=== PATIENT | female | born 1980 | race Caucasian/White ===

== ENCOUNTER 2021-06-07 20:53 | Emergency (ER) | payer OTHER ==
[~2021-06-07] VITALS: Ht 165.1 cm; Wt 63.8 kg
--- NOTE | 2021-06-07 21:18 | PHYS DOC ---
Past History Past Surgical History: Tonsillectomy, Other Additional Past Surgical Histo: right knee ACL Alcohol Use: Occasionally General Adult EDM: Chief Complaint: CHEST PAIN HPI: HPI: 41-year-old female presents with chest pain. The patient had an episode of palpitation earlier today around 2:00 while she was watching her son's cross- country meet. She was slightly dizzy at that time but it went away. She has intermittent palpitations that have been deemed not dangerous by her physician. This evening she had a left-sided chest heaviness with a feeling of warmth over her body and that she might pass out. The dizziness returned at that time. She was making dinner when this episode started. It did not improve with rest but the dizziness faded. Currently she has chest pressure that is a 3 or 4 out of 10 on the left side without radiation. She does not have any dizziness. The patient has no significant risk factors. No family history of heart disease under the age of 50. She has no personal cardiopulmonary diagnoses. She denies fever or chills. Review of Systems: Review of Systems: Constitutional: Denies fever or chills Eyes: Denies change in visual acuity HENT: Denies nasal congestion or sore throat Respiratory: Denies cough or shortness of breath Cardiovascular: Chest pain GI: Denies abdominal pain, nausea, vomiting, bloody stools or diarrhea : Denies dysuria Musculoskeletal: Denies back pain or joint pain Integument: Denies rash Neurologic: Denies headache, focal weakness or sensory changes Endocrine: Denies polyuria or polydipsia Lymphatic: Denies swollen glands Psychiatric: Denies depression or anxiety Allergies: Allergies: Allergies Coded Allergies Type Severity Reaction Last Updated Verified No Known Drug Allergies 06/07/21 No Physical Exam: PE: Constitutional: Well developed, well nourished, no acute distress, non-toxic appearance. [] HENT: Normocephalic, atraumatic, bilateral external ears normal, oropharynx moist, no oral exudates, nose normal. [] Eyes: PERRLA, EOMI, conjunctiva normal, no discharge. [] Neck: Normal range of motion, no tenderness, supple, no stridor. [] Cardiovascular: Heart rate 66, regular rhythm, no murmur [] Lungs & Thorax: Bilateral breath sounds clear to auscultation [] Abdomen: Bowel sounds normal, soft, no tenderness, no masses, no pulsatile masses. [] Skin: Warm, dry, no erythema, no rash. [] Back: No tenderness, no CVA tenderness. [] Extremities: No tenderness, no cyanosis, no clubbing, ROM intact, no edema. [] Neurologic: Alert and oriented X 3, normal motor function, normal sensory function, no focal deficits noted. [] Psychologic: Affect normal, judgement normal, mood normal. [] Current Patient Data: Vital Signs: Vital Signs Date Time Temp Pulse Resp B/P (MAP) Pulse Ox O2 Delivery O2 Flow Rate FiO2 06/07/21 20:58 98.5 60 16 122/65 (84) 100 Room Air EKG: EKG: Sinus rhythm, rate 66, normal axis, no ST elevation or depression. [] Radiology/Procedures: Radiology/Procedures: [] Impressions: EXAM: CHEST 1 VIEW History: Chest pain COMPARISON: None available. TECHNIQUE: Single portable radiograph of the chest FINDINGS: The cardiac silhouette is unremarkable. The lungs are clear bilaterally. The costophrenic sulci are clear and well demarcated. IMPRESSION: No radiographic evidence of an acute cardiopulmonary process. Electronically signed by: Rayray Walker MD (06/07/2021 10:39 PM) [id number] DICTATED AND SIGNED BY: RAYRAY WALKER MD DATE: 06/07/212237 CC: ANTELMO CREWS DO ~MTH0 0 Heart Score: C/O Chest Pain: Yes HEART Score for Chest Pain: HEART Score for Chest Pain Response (Comments) Value History Slighlty/Non-Suspicious 0 ECG Normal 0 Age < 45 0 Risk Factors No Risk Factors 0 Troponin < Normal Limit 0 Total 0 Risk Factors: Risk Factors: DM, Current or recent (<one month) smoker, HTN, HLP, family history of CAD, obesity. Risk Scores: Score 0 - 3: 2.5% MACE over next 6 weeks - Discharge Home Score 4 - 6: 20.3% MACE over next 6 weeks - Admit for Clinical Observation Score 7 - 10: 72.7% MACE over next 6 weeks - Early Invasive Strategies Course & Med Decision Making: Course & Med Decision Making Pertinent Labs and Imaging studies reviewed. (See chart for details) The patient's EKG is unremarkable. Her chest x-ray is negative for acute findings. Her labs are unremarkable. Her troponin is not 0, but is within normal limits. I have an abundance of caution I will draw a second troponin before discharging the patient. I explained this to her and she is in agreement with the plan. If she continues to have symptoms she should follow-up and have a further work-up by her primary care physician or student records coordinator. She states verbal understanding. She is stable for discharge at this time. [] Kathyon Disclaimer: Robbie Disclaimer: This electronic medical record was generated, in whole or in part, using a voice recognition dictation system. Departure Departure: Impression: Primary Impression: Chest pain Qualified Codes: R07.9 - Chest pain, unspecified Disposition: HOME / SELF CARE / HOMELESS Condition: STABLE Patient Instructions: Chest Pain (Nonspecific), [id number]-[id number] ANTELMO CREWS DO Jun 07, 2021 21:18
[2021-06-07 21:26] LABS: BASO # 0.1 x10^3/uL (0.0-0.2); BASO % 1 % (0-3); EOS # 0.1 x10^3/uL (0.0-0.7); EOS % 1 % (0-3); HEMATOCRIT 36.4 % (36.0-47.0); HEMOGLOBIN 12.4 g/dL (12.0-15.5); LYMPH # 1.4 x10^3/uL (1.0-4.8); LYMPH % 16 % (24-48); MEAN CORPUSCULAR HEMOGLOBIN 32 pg (25-35); MEAN CORPUSCULAR HGB CONC 34 g/dL (31-37); MEAN CORPUSCULAR VOLUME 93 fL (79-100); MONO # 0.7 x10^3/uL (0.0-1.1); MONO % 8 % (0-9); NEUT # 6.4 x10^3uL (1.8-7.7); NEUT % 74 % (31-73); PLATELET COUNT 247 x10^3/uL (140-400); RED BLOOD COUNT 3.91 x10^6/uL (3.50-5.40); RED CELL DISTRIBUTION WIDTH 13.2 % (11.5-14.5); WHITE BLOOD COUNT 8.6 x10^3/uL (4.0-11.0)
[2021-06-07 21:34] LABS: CREATININE 0.8 mg/dL (0.6-1.0); GFR 79.4; POTASSIUM 3.7 mmol/L (3.5-5.1)
[2021-06-07 21:39] LABS: ALBUMIN 3.9 g/dL (3.4-5.0); ALBUMIN/GLOBULIN RATIO 1.3 (1.0-1.7); TOTAL BILIRUBIN 0.4 mg/dL (0.2-1.0)
[2021-06-07 21:45] LABS: BILIRUBIN,URINE NEG (NEG); CLARITY,URINE CLEAR; COLOR,URINE YELLOW; GLUCOSE,URINE NEG (NEG); NITRITE,URINE NEG (NEG); RBC,URINE 0 /HPF (0-2); UROBILINOGEN,URINE 0.2 mg/dL (0.2 mg/dL)
[2021-06-07 21:46] LABS: BACTERIA,URINE 0 /HPF (0-FEW); HYALINE CASTS, URINE OCC /HPF; SQUAMOUS EPITHELIAL CELL,UR FEW /LPF; WBC,URINE 0 /HPF (0-4)
--- NOTE | 2021-06-07 22:42 | RAD ---
EXAM: CHEST 1 VIEW History: Chest pain COMPARISON: None available. TECHNIQUE: Single portable radiograph of the chest FINDINGS: The cardiac silhouette is unremarkable. The lungs are clear bilaterally. The costophrenic sulci are clear and well demarcated. IMPRESSION: No radiographic evidence of an acute cardiopulmonary process. Electronically signed by: Rayray Walker MD (06/07/2021 10:39 PM) [id number]
[2021-06-07 23:10] VITALS: BP 117/70
--- NOTE | 2021-06-08 07:18 | EKG ---
[address] [address] Test Date: 2021-06-07 Test Time: 21:04:22 Pat Name: RIKI STRONG Department: Room: Gender: F [employer]: : 1980 Requested By: ANTELMO CREWS Order Number: [id number] Reading MD: Measurements Intervals [place] Rate: 66 P: 61 VT: 156 QRS: 79 QRSD: 76 T: 34 QT: 398 QTc: 419 Interpretive Statements SINUS RHYTHM NORMAL ECG RI6.02 No previous ECG available for comparison
== END 2021-06-07 23:54 | disposition home or self-care (01) ==
LOC: ER 20:53
DX: R07.89 Other chest pain (principal); R00.2 Palpitations; R42 Dizziness and giddiness
CPT/HCPCS: 36415; 71045; 80053; 81001; 84484; 85025; 93005; 99285

== ENCOUNTER → 2021-07-26 | Outpatient (CLI) | payer OTHER ==
--- NOTE | 2021-07-26 12:56 | RAD ---
MR#: [id number] Date of Study: 07/26/2021 Ordering Physician: JACOB HIGGINS Referring Physician: CARLOS WORTHY Tech: ANA MARIA Dalton APPROVED REPORT Test Type: Exercise Stress Nurse/Tech: ANA MARIA Dalton Test Indications: elevated Troponin Cardiac History: none Medications: see EHR Medical History: see EHR Resting ECG: SR Resting Heart Rate: 71 bpm Resting Blood Pressure: 110/59mmHg Pretest Chest Pain: None Nurse/Tech Notes Consent: The procedure was explained to the patient in lay terms. Informed consent was witnessed. Seymour eout was entered into [employer]. History and Stress Test performed by ANA MARIA Dalton POST EXERCISE Reason for Termination: Reached target heart rate Target HR: 153 Max HR: 153 bpm Blood Pressure response to exercise: Normal blood pressure response during stress. Heart Rate response to exercise: normal Chest Pain: Yes. INTERPRETATION Stress EKG Conclusion: Baseline EKG showed sinus rhythm. No ischemic changes at peak stress. No arr hythmias. Imaging Protocol IMAGE PROTOCOL: Rest Tc-99m/stress Tc-99m 1 day Rest: Stress: Viability: Radiopharm.Tc99m VokrynpbcFb97z Sestamibi Xgfl49wWi 31mCi Duration 15min. 10min. Img Date 07/26/2021 07/26/2021 Inj-Img Vyuh81cei. 60min. Post-Injection Exercise: 1 minute Rest Admin Site:IV - Right AntecubitalAdministrator: ANA MARIA Dalton Stress Admin Site: IV - Right AntecubitalAdministrator: ANA MARIA Dalton STRESS DATA End Diast. Vol.108.0mlAv. Heart Rate59.0bpm End Syst. Vol.34.0mlCO Index BSA0.0L/min Myocardial Rozq860.0gEject. Kpecitoi43.0% Stress Rates Pk. Fill Rate3.29EDV/secLVtime Pk. Fill 212.07msec Pk. Empty Rate4.10ESV/secLVtime Pk. Mdtvw990.85msec 09/26 Pk. Fill1.60EDV/sec Stress Scores Regional WT0.00Summed WT0.00 Regional WM0.00Summed WM0.00 Study quality was good. Left Ventricular size was Normal at Rest and Stress. Lung uptake was . Left Ventricular ejection fraction is 67%. The rest and stress images show normal perfusion, normal contraction and thickening. LV Perf. Quant 17 Seg. SSS0.00 17 Seg. SRS1.00 17 Seg. SDS0.00 Stress Defect Extent (% LAD)0.00Rest Defect Extent (% LAD)0.00Rev. Defect Extent (% LAD)0.00 Stress Defect Extent (% LCX) 0.00Rest Defect Extent (% LCX)0.00Rev. Defect Extent (% LCX)0.00 Stress Defect Extent (% RCA)0.00Rest Defect Extent (% RCA)0.00Rev. Defect Extent (% RCA)0.00 Stress Defect Extent (% JEFFERSON)0.00Rest Defect Extent (% JEFFERSON)0.00Rev. Defect Extent (% JEFFERSON)0.00 Conclusion 1. Treadmill exercise cardioisotope stress test did not show any evidence of ischemia or infarct. 2. Normal left ventricular systolic function with ejection fraction calculated at 67%. 3. Low risk for cardiac events. Signed by : Jacob Higgins Electronically Approved : 07/26/2021 12:56:11
--- NOTE | 2021-07-26 13:10 | CARD ---
MR#: [id number] Date of Study: 07/26/2021 Ordering Physician: JACOB HIGGINS, Referring Physician: JACOB HIGGINS, Tech: Kayla Reeder [facility] APPROVED REPORT EXAM: Two-dimensional and M-mode echocardiogram with Doppler and color Doppler. Other Information Quality : GoodHR: 53bpm INDICATION Chest Pain Elevated Troponin 2D DIMENSIONS RVDd3.5 (2.9-3.5cm)Left Atrium(2D)2.9 (1.6-4.0cm) IVSd0.7 (0.7-1.1cm)Aortic Root(2D)2.8 (2.0-3.7cm) LVDd5.1 (3.9-5.9cm)LVOT Diameter2.0 (1.8-2.4cm) PWd0.7 (0.7-1.1cm)LVDs3.3 (2.5-4.0cm) FS (%) 35.4 %SV79.7 ml LVEF(%)64.5 (>50%) Aortic Valve AoV Peak Uriel.164.1cm/sAoV VTI39.8cm AO Peak GR.10.8mmHgLVOT Peak Uriel.138.2cm/s LVOT VTI 31.89cmAO Mean GR.6mmHg SIGIFERDO (VMAX)2.18ie0OLC (VTI)2.58cm2 Mitral Valve MV E Lgfzbwsv808.6cm/sMV E Peak Gr.4mmHg MV DECEL [id number] A Kgryhjsi35.6cm/s MV E Mean Gr.1mmHgE/A Ratio2.3 Pulmonary Valve PV Peak Tbtmcizt56.0cm/sPV Peak Grad.4mmHg Tricuspid Valve TR P. Dvjwicos250pu/sRAP XRFOVWES2lgCa TR Peak Gr.21laFqALTI00zcTs Pulmonary Vein S1 Taqltslu91.5cm/sD2 Dqgbbkkc20.4cm/s LEFT VENTRICLE The left ventricle is normal size. There is normal left ventricular wall thickness. The left ventricu lar systolic function is normal. The Ejection Fraction is 55%. There is normal LV segmental wall mariana on. The left ventricular diastolic function and filling is normal for age. RIGHT VENTRICLE The right ventricle is normal size. There is normal right ventricular wall thickness. The right ventr icular systolic function is normal. ATRIA The left atrium size is normal. The right atrium size is normal. The interatrial septum is intact wit h no evidence for an atrial septal defect or patent foramen ovale as noted on 2-D or Doppler imaging. AORTIC VALVE The aortic valve is normal in structure and function. Doppler and Color Flow revealed no significant aortic regurgitation. There is no significant aortic valvular stenosis. Calculated aortic valve area is 2.7 cm2 with maximum pressure gradient of 11 mmHg and mean pressure gradient of 6 mmHg. MITRAL VALVE The mitral valve is normal in structure and function. There is no evidence of mitral valve prolapse. There is no mitral valve stenosis. Doppler and Color Flow revealed no mitral valve regurgitation note d. TRICUSPID VALVE The tricuspid valve is normal in structure and function. Doppler and Color Flow revealed trace tricus pid regurgitation with an estimated PAP of 26 mmHg. There is no tricuspid valve stenosis. PULMONIC VALVE The pulmonary valve is normal in structure and function. Doppler and Color Flow revealed trace pulmon ic valvular regurgitation. GREAT VESSELS The aortic root is normal in size. The ascending aorta is normal in size. The IVC is normal in size a nd collapses >50% with inspiration. PERICARDIAL EFFUSION There is no evidence of significant pericardial effusion. Critical Notification Critical Value: No <Conclusion> The left ventricular systolic function is normal. The Ejection Fraction is 55%. There is normal LV segmental wall motion. Trace tricuspid regurgitation with an estimated PAP of 26 mmHg. There is no evidence of significant pericardial effusion. Signed by : Jacob Higgins, Electronically Approved : 07/26/2021 13:10:10
== END ==
LOC: NM 08:28
PROVIDERS: ATTEND Internal Medicine Cardiovascular Disease
DX: R79.89 Other specified abnormal findings of blood chemistry (principal); R07.9 Chest pain, unspecified
CPT/HCPCS: 78452; 93017; 93306; A9500